=== PATIENT | male | born 1965 | race Native Hawaiian/Other Pacific Islander ===

== ENCOUNTER 2024-02-16 20:28 | Emergency (ER) | payer BC ==
[~2024-02-16] VITALS: Ht 162.6 cm; Wt 65.8 kg
[2024-02-16] MEDS ORDERED: IBUPROFEN 600 MG TABLET ONE (20:57)
[2024-02-16] MEDS ORDERED: SULFAMETH/TRIMETH 800/160 MG TABLET ONE (20:57)
[2024-02-16] MEDS ORDERED: LIDOCAINE HCL 1% 20 ML VIAL ONE (20:58)
[2024-02-16] MEDS ORDERED: NEOMY/BACITRA/POLYMYXIN B OINT UD PACKET TP ONE (20:59)
[2024-02-16] MEDS: SULFAMETH/TRIMETH 800/160 MG TABLET PO ONE (21:00)
[2024-02-16] MEDS: IBUPROFEN 600 MG TABLET PO ONE (21:00)
[2024-02-16] MEDS: NEOMY/BACITRA/POLYMYXIN B OINT UD PACKET TP ONE (21:46)
[2024-02-16] MEDS: LIDOCAINE HCL 1% 20 ML VIAL TP ONE (21:47)
[2024-02-16] MEDS ORDERED: AMOX-430 PO (21:48)
[2024-02-16 21:55] VITALS: BP 122/72; O2SAT 98
== END 2024-02-16 21:52 | disposition home or self-care (01) ==
LOC: ER 20:31
DX: K61.0 Anal abscess (principal); Z79.899 Other long term (current) drug therapy
CPT/HCPCS: A4606; A4663; J3490